=== PATIENT | male | born 1965 | race Caucasian/White ===

== ENCOUNTER 2016-10-22 19:43 | Emergency (ER) | payer OTHER ==
[~2016-10-22] VITALS: Ht 167.6 cm; Wt 71.4 kg
[2016-10-22 19:48] VITALS: BP 160/107; PULSE 73; RESP 16; O2SAT 100
--- NOTE | 2016-10-22 20:36 | ED.REPORT ---
HPI-Chest Pain 40 and Over Date of Service Oct 22, 2016 ED Provider: Broderick Pino MD Pt is a 51 year old male with a history fo HTN and anxiety who presents to the ED complaining of substernal chest tightness onset 3 days ago. He c/o associated lightheadedness, chills, decreased appetite, and increased thirst. He reports that he has experienced similar symptoms previously due to anxiety, which he would relieve by taking long walks. The pt states "it feels exactly like severe anxiety" and that his symptoms are worse than previous episodes and constant. He denies having significant stress in his life aside from attempting to sell his house. Nursing Notes Stated Complaint: CHEST PAIN Chief Complaint: Chest Pain Nursing Notes Reviewed: Yes Allergies: Coded Allergies: No Known Allergies (Unverified , 10/22/16) Scheduled PRN Hydroxyzine Pamoate (HydrOXYzine Pamoate) 25 Mg Capsule 25 MG PO HS PRN PRN For Insomnia General Time Seen by MD: 20:34 Chief Complaint Chest pain Hx Obtained From: Patient Arrived By: Walk-in Sudden in Onset?: No Onset Occurred: 3 days ago Symptom Duration: Since onset Location: : Substernal Quality: Painful Radiation: : Does not radiate Severity: Current: Moderate Severity: Maximum: Moderate Recent Healthcare: No recent doctor visit, No recent hospitalization Similar Sx Previous: Yes Past Medical History Past Medical History Anxiety Parathyroid disease Reports: Hypertension Past Surgical History Hernia Smoking History Never Smoker Social History Engaged - 10/22/16 Alcohol Use: "Social" Drug Use: THC Other Social History: Good social support Ambulatory Status Independent Review of Systems + Decreased appetite + Increased thirst Denies recent illness Constitutional: Reports: Chills Cardiovascular: Reports: Chest pain (tightness) GI: Reports: Nausea Skin: Reports Diaphoresis Neurologic: Reports: Lightheaded Psychiatric: Reports: Anxiety Complete sys rev & neg: except as marked. Physical Exam Initial Vital Signs Vital Signs (First) Date Time Temp Pulse Resp B/P Pulse Ox O2 Delivery O2 Flow Rate FiO2 10/22/16 19:48 37.2 73 16 160/107 100 Room Air Initial VS: Reviewed Head / Eyes: Atraumatic, Normocephalic Neck: Supple, Full range of motion Extremities: Vascular intact, Neuro intact Skin: Warm, Dry, No cyanosis Neurologic: Alert, Oriented, Nonfocal Psychiatric: Mood/affect normal, Behavior normal General/Constitutional: Awake, Alert Respiratory / Chest: Atraumatic, Breath sounds NL, Breath sounds = bilat Cardiovascular: Heart rate NL, Regular rhythm, Heart sounds NL, No gallop, No murmurs Abdomen: Soft, Non-tender, BS normoactive Interpretation & Diagnostics Lab Results Interpretation Result Diagram: 10/22/16204410/22/16 2005 Test 10/22/16 20:05 10/22/16 20:45 Sodium Level 143mEq/L (134-144) Potassium Level 4.0mEq/L (3.5-5.2) Chloride Level 102mEq/L (97-108) Carbon Dioxide Level 21mmol/L (18-29) Blood Urea Nitrogen 17mg/dL (6-24) Creatinine 0.85mg/dL (0.76-1.27) Estimat Glomerular Filtration Rate 101mL/min (>59) Glucose Level 99mg/dL (60-99) Calcium Level 10.2mg/dL (8.5-10.1) Magnesium Level 2.0mg/dL (1.6-2.6) Total Bilirubin 0.3mg/dL (0.0-1.2) Aspartate Amino Transf (AST/SGOT) 22U/L (0-50) Alanine Aminotransferase (ALT/SGPT) 18U/L (0-44) Alkaline Phosphatase 74U/L (25-150) Troponin T < 0.010ug/L (0.0-0.011) Total Protein 8.0g/dL (6.4-8.4) Albumin 5.0g/dL (3.4-5.0) Hold Person Top Tube Received (Received) White Blood Count 8.1th/mm3 (3.8-10.1) Red Blood Count 4.61mil/mm3 (4.40-5.80) Hemoglobin 14.3g/dL (13.8-17.2) Hematocrit 41.4% (41.0-50.0) Mean Corpuscular Volume 89.8fL (81-100) Mean Corpuscular Hemoglobin 31.0pg (27.0-35.0) Mean Corpuscular Hemoglobin Concent 34.5% (32.0-37.0) Red Cell Distribution Width 12.4% (12.3-15.4) Platelet Count 210bil/L (150-400) Neutrophils (%) (Auto) 42.5% (40-74) Lymphocytes (%) (Auto) 43.6% (14-46) Monocytes (%) (Auto) 12.1% (4-12) Eosinophils (%) (Auto) 1.0% (0-5) Basophils (%) (Auto) 0.4% (0-3) ECG Interpretation ECG Interpretation: Sinus rhythm with a rate of 75. Repolarization, which is benign. Time: 20:05 Interpreted by: ED physician X-Ray Chest Interpretation Chest Xray Interpretation: IMPRESSION: Negative chest. Dictated by: Joe Jones M.D. on 10/22/2016 at 21:27 View: Portable, 1 view Interpretation / Wet Read by: Interpret - Radiologist Re-Eval/Medical Decision Med Decision/Clinical Course History of anxiety-related chest pain and 3 days of continuous pain in the setting of situational stress. No objective findings of an acute coronary syndrome tonight. Given that he had 3 days of constant symptoms I did not repeat his troponin. He was initially hypertensive, this normalized spontaneously. Was given a single dose of lorazepam for anxiety which will hopefully also help him sleep tonight and then reuse hydroxyzine when necessary. Source of Hx: Old records Time of Eval: 22:17 Re-Evaluation/Progress Note: Pt rechecked. Pt reprots insomnia. Informed pt of plan for discharge. Pt understands and agrees with plan for discharge. F/U instructions and RTER warnings given. All questions addressed Counseled Regarding: Diagnosis, Lab results, Need for follow-up, When/why to return to ED Discharge & Departure Primary Impression: Non-cardiac chest pain Additional Impression: Situational anxiety Disposition: Home Discharge Condition All VS Reviewed: Yes Condition: Stable Additional Instructions: Emergency Department evaluation included interview, examination labs ECG and chest x-ray. No serious cause for chest pain is identified tonight. We have given lorazepam which should help with anxiety for tonight. May use hydroxyzine 25-50 mg at bedtime beginning tomorrow night as needed for insomnia. Follow up with primary care next week. Return to emergency department for increasing chest pain or difficulty breathing. Referrals: Jose Su MDiblupillo Attestation Portions of this note were transcribed by Lucie Palmer. I, Dr. Pino personally performed the history, physical exam and medical decision-making; I reviewed and confirmed the accuracy of the information in the transcribed note. Signed by : Christopher Hedrick, 10/22/16. copies to: Jose Su MD, Donald L MD Oct 22, 2016 20:35 Lucie Armendariz Oct 22, 2016 21:05
[2016-10-22 20:45] LABS: TROPONIN T < 0.010 ug/L (0.0-0.011)
[2016-10-22 20:54] VITALS: BP 148/101; PULSE 66; RESP 14; O2SAT 100
[2016-10-22 20:54] LABS: BASOPHILS % (AUTO) 0.4 % (0-3); MONOCYTES % (AUTO) 12.1 % (4-12); Mean Corpuscular Volume 89.8 fL (81-100); NEUTROPHILS % (AUTO) 42.5 % (40-74); Platelet Count 210 bil/L (150-400)
[2016-10-22] MEDS ORDERED: LORazepam 1 mg Tablet PO ONE (21:10)
--- NOTE | 2016-10-22 21:29 | DRSVH ---
PROCEDURE: X-RAY CHEST ONE VIEW, PORTABLE ([id number]) INDICATIONS: chest pain TECHNIQUE: One view of the chest was acquired. COMPARISON: None. FINDINGS: Surgical changes and devices: None. Lungs and pleura: No pleural effusions or pneumothorax. Lungs are clear. Mediastinum: Mediastinal contours appear normal. Heart size is normal. Bones and chest wall: No suspicious bony lesions. Overlying soft tissues appear unremarkable. IMPRESSION: Negative chest. Dictated by: Joe Jones M.D. on 10/22/2016 at 21:27 Approved by: Joe Jones M.D. on 10/22/2016 at 21:28
[2016-10-22] MEDS ORDERED: HYDR-3797 PO (22:22)
[2016-10-22 22:53] VITALS: BP 127/87; PULSE 62; RESP 16; O2SAT 97
== END 2016-10-22 22:54 | disposition home or self-care (01) ==
LOC: SED 19:43
DX: R07.89 Other chest pain (principal); F43.0 Acute stress reaction; R42 Dizziness and giddiness; I10 Essential (primary) hypertension